=== PATIENT | female | born 1955 | race Caucasian/White ===

== ENCOUNTER 2018-02-13 11:27 | Emergency (ER) | payer OTHER ==
[2018-02-13] MEDS ORDERED: Sodium Chloride 0.9% 1,000 ML IV ONE ×3 (12:14→14:59)
--- NOTE | 2018-02-13 12:24 | EDM.PDOC ---
ED HPI GENERAL MEDICAL PROBLEM - General Chief Complaint: Skin Complaint Stated Complaint: ABSCESS ON BUTTOCK Time Seen by Provider: 02/13/18 11:52 Source of Information: Reports: Patient History Limitations: Reports: No Limitations - History of Present Illness INITIAL COMMENTS - FREE TEXT/NARRATIVE: Patient is a 62-year-old female who presents to the ED complaining of a abscess to the left buttox cheek. This started approximately 2 days ago and has progressively gotten worse. Since onset she's had episodes of nausea and vomiting with profuse sweating and poor appetite. She's attempted to push the fluids but this is difficult. In addition she has a history of chronic cough secondary to smoking. She smokes a half pack per day. This is chronic with no significant changes. She is short of breath chronically. She is a type II diabetic with a history of hypertension, hypothyroidism, and hypercholesterolemia. She is currently on Synthroid, pravastatin, Zyrtec, metformin, HCTZ, and ezetimibe. She has no history of MRSA. - Related Data Allergies Allergy/AdvReac Type Severity Reaction Status Date / Time egg Allergy Nausea and Verified 02/13/18 11:52 Vomiting fish derived Allergy Nausea and Verified 02/13/18 11:52 Vomiting Penicillins Allergy Other Verified 02/13/18 11:52 Home Meds: Home Meds Cetirizine [ZyrTEC] 10 mg PO DAILY 02/13/18 [History] Ezetimibe 10 mg PO DAILY 02/13/18 [History] Hydrochlorothiazide 25 mg PO DAILY 02/13/18 [History] Levothyroxine [Synthroid] 88 mcg PO DAILY 02/13/18 [History] Pravastatin [Pravachol] 40 mg PO DAILY 02/13/18 [History] metFORMIN [Glucophage XR] 500 mg PO BID 02/13/18 [History] ED ROS GENERAL - Review of Systems Review Of Systems: See Below Constitutional: Reports: Fever, Chills, Malaise, Weakness, Decreased Appetite HEENT: Reports: No Symptoms Respiratory: Reports: Shortness of Breath (Chronic), Cough (Chronic). Denies: Pleuritic Chest Pain Cardiovascular: Denies: Chest Pain, Dyspnea on Exertion, Lightheadedness, Palpitations, Syncope GI/Abdominal: Reports: Decreased Appetite, Nausea, Vomiting. Denies: Abdominal Pain, Constipation, Diarrhea : Reports: No Symptoms Musculoskeletal: Reports: No Symptoms Skin: Reports: Other (Abscess to the left Botox cheek) Neurological: Reports: No Symptoms ED EXAM, SKIN/RASH Exam: See Below Exam Limited By: No Limitations General Appearance: Alert, WD/WN, Moderate Distress Eye Exam: Bilateral Eye: PERRL Ears: Hearing Grossly Normal Nose: Normal Inspection Throat/Mouth: Normal Voice, No Airway Compromise Head: Atraumatic, Normocephalic Neck: Normal Inspection, Supple Respiratory/Chest: No Respiratory Distress, No Accessory Muscle Use, Wheezing ( Intermittent wheezing throughout cleared with coughing.). No: Accessory Muscle Use Cardiovascular: Normal Peripheral Pulses, Regular Rate, Rhythm, No Murmur Peripheral Pulses: 4+: Radial (R) GI/Abdominal: Normal Bowel Sounds, Soft, Non-Tender, No Organomegaly, No Distention Rectal (Female) Exam: Other (Large area of redness to the left buttocks cheek with increased swelling and tenderness noted. This extends along the rectum.) Back Exam: Normal Inspection Neurological: Alert, Oriented, CN II-XII Intact, Normal Cognition, No Motor/ Sensory Deficits Psychiatric: Normal Affect, Normal Mood Skin: Warm, Intact, Diaphoretic, Increased Warmth Course - Vital Signs Last Recorded V/S: Last Vital Signs Temp 98.2 F 02/13/18 15:04 Pulse 12 L 02/13/18 11:47 Resp 20 02/13/18 11:47 BP 124/77 02/13/18 11:47 Pulse Ox 91 L 02/13/18 11:47 - Orders/Labs/Meds Orders: Active Orders 24 hr Category Date Time Status Communication Order [RC] ASDIRECTED Care 02/13/18 14:07 Active Peripheral IV Care [RC] . DIRECTED Care 02/13/18 12:14 Active Peripheral IV Care [RC] . DIRECTED Care 02/13/18 14:03 Active CXR [Chest 1V Frontal] [CR] Stat Exams 02/13/18 11:52 Taken Pelvis w Cont [CT] Stat Exams 02/13/18 13:42 Taken CULTURE BLOOD [BC] Stat Lab 02/13/18 12:40 Received CULTURE BLOOD [BC] Stat Lab 02/13/18 13:00 Received Blood Culture x2 Reflex Set [OM.PC] Stat Oth 02/13/18 11:52 Ordered Peripheral IV Insertion Adult [OM.PC] Routine Oth 02/13/18 12:14 Ordered Peripheral IV Insertion Adult [OM.PC] Routine Oth 02/13/18 14:03 Ordered Labs: Laboratory Tests 02/13/18 02/13/18 02/13/18 Range/Units 12:20 12:20 12:20 WBC 17.28 H (3.98-10.04) K/mm3 RBC 5.64 H (3.98-5.22) M/mm3 Hgb 15.7 (11.2-15.7) gm/L Hct 46.8 H (34.1-44.9) % MCV 83.0 (79.4-94.8) fl MCH 27.8 (25.6-32.2) pg MCHC 33.5 (32.2-35.5) g/dl RDW Std Deviation 46.0 (36.4-46.3) fL Plt Count 346 (182-369) K/mm3 MPV 10.0 (9.4-12.3) fl Neutrophils % (Manual) 83 H (40-60) % Band Neutrophils % 3 (0-10) % Lymphocytes % (Manual) 13 L (20-40) % Atypical Lymphs % 0 % Monocytes % (Manual) 1 L (2-10) % Eosinophils % (Manual) 0 L (0.7-5.8) % Basophils % (Manual) 0 L (0.1-1.2) Platelet Estimate Adequate RBC Morph Comment Normal Sodium 132 L (136-145) mEq/L Potassium 3.0 L (3.5-5.1) mEq/L Chloride 93 L (98-107) mEq/L Carbon Dioxide 27 (21-32) mEq/L Anion Gap 15.0 (5-15) BUN 21 H (7-18) mg/dL Creatinine 1.1 H (0.55-1.02) mg/dL Est Cr Clr Drug Dosing 40.01 mL/min Estimated GFR (MDRD) 50 (>60) mL/min BUN/Creatinine Ratio 19.1 H (14-18) Glucose 222 H (80-115) mg/dL Hemoglobin A1c 6.70 H (4.50-6.20) % Lactic Acid (0.4-2.0) mmol/L Calcium 8.9 (8.5-10.1) mg/dL Magnesium (1.8-2.4) mg/dl Total Bilirubin 1.0 (0.2-1.0) mg/dL AST 13 L (15-37) U/L ALT 13 L (14-59) U/L Alkaline Phosphatase 73 (46-116) U/L C-Reactive Protein 45.0 H* (<1.0) mg/dL Total Protein 7.1 (6.4-8.2) g/dl Albumin 2.3 L (3.4-5.0) g/dl Globulin 4.8 gm/dL Albumin/Globulin Ratio 0.5 L (1-2) 02/13/18 02/13/18 Range/Units 12:20 12:40 WBC (3.98-10.04) K/mm3 RBC (3.98-5.22) M/mm3 Hgb (11.2-15.7) gm/L Hct (34.1-44.9) % MCV (79.4-94.8) fl MCH (25.6-32.2) pg MCHC (32.2-35.5) g/dl RDW Std Deviation (36.4-46.3) fL Plt Count (182-369) K/mm3 MPV (9.4-12.3) fl Neutrophils % (Manual) (40-60) % Band Neutrophils % (0-10) % Lymphocytes % (Manual) (20-40) % Atypical Lymphs % % Monocytes % (Manual) (2-10) % Eosinophils % (Manual) (0.7-5.8) % Basophils % (Manual) (0.1-1.2) Platelet Estimate RBC Morph Comment Sodium (136-145) mEq/L Potassium (3.5-5.1) mEq/L Chloride (98-107) mEq/L Carbon Dioxide (21-32) mEq/L Anion Gap (5-15) BUN (7-18) mg/dL Creatinine (0.55-1.02) mg/dL Est Cr Clr Drug Dosing mL/min Estimated GFR (MDRD) (>60) mL/min BUN/Creatinine Ratio (14-18) Glucose (80-115) mg/dL Hemoglobin A1c (4.50-6.20) % Lactic Acid 2.4 H (0.4-2.0) mmol/L Calcium (8.5-10.1) mg/dL Magnesium 1.3 L (1.8-2.4) mg/dl Total Bilirubin (0.2-1.0) mg/dL AST (15-37) U/L ALT (14-59) U/L Alkaline Phosphatase (46-116) U/L C-Reactive Protein (<1.0) mg/dL Total Protein (6.4-8.2) g/dl Albumin (3.4-5.0) g/dl Globulin gm/dL Albumin/Globulin Ratio (1-2) Meds: Medications Discontinued Medications Generic Name Dose Route Start Last Admin Trade Name Freq PRN Reason Stop Dose Admin Sodium Chloride 1,000 mls @ 999 mls/hr 02/13/18 12:14 02/13/18 12:38 Normal Saline IV 02/13/18 13:14 999 mls/hr ONETIME ONE Administration Sodium Chloride 1,000 mls @ 999 mls/hr 02/13/18 12:15 02/13/18 15:23 Normal Saline IV 02/13/18 13:15 999 mls/hr ONETIME ONE Administration Cefoxitin Sodium 1 gm/ Premix 50 mls @ 100 mls/hr 02/13/18 13:44 02/13/18 15: 27 IV 02/13/18 14:13 100 mls/hr ONETIME ONE Administration Metronidazole 500 mg/ Premix 100 mls @ 100 mls/hr 02/13/18 13:44 02/13/18 15: 36 IV 02/13/18 14:43 100 mls/hr ONETIME ONE Administration Magnesium Sulfate 2 gm/ Premix 50 mls @ 25 mls/hr 02/13/18 14:06 02/13/18 15: 35 IV 02/13/18 16:05 25 mls/hr ONETIME ONE Administration Potassium Chloride 10 meq/ 100 mls @ 100 mls/hr 02/13/18 14:15 02/13/18 15:35 Premix IV 100 mls/hr ASDIRECTED BO Administration Sodium Chloride 1,000 mls @ 999 mls/hr 02/13/18 14:59 Normal Saline IV 02/13/18 15:59 ONETIME ONE Iopamidol 100 ml 02/13/18 14:12 02/13/18 14:36 Isovue-370 (76%) IVPUSH 02/13/18 14:13 100 ml ONETIME ONE Administration Magnesium Oxide 800 mg 02/13/18 14:03 02/13/18 15:43 Magnesium Oxide PO 02/13/18 14:04 800 mg ONETIME ONE Administration Ondansetron HCl 4 mg 02/13/18 14:07 02/13/18 15:07 Zofran IVPUSH 02/13/18 14:08 4 mg ONETIME ONE Administration Potassium Chloride 40 meq 02/13/18 14:03 02/13/18 15:07 Klor-Con M20 PO 02/13/18 14:04 40 meq ONETIME ONE Administration Sodium Chloride 10 ml 02/13/18 12:14 02/13/18 15:28 Saline Flush FLUSH 10 ml ASDIRECTED PRN Administration Keep Vein Open Sodium Chloride 10 ml 02/13/18 14:03 Saline Flush FLUSH ASDIRECTED PRN Keep Vein Open Sodium Chloride 10 ml 02/13/18 14:12 02/13/18 14:36 Saline Flush FLUSH 02/13/18 14:13 10 ml ONETIME ONE Administration - Re-Assessments/Exams Free Text/Narrative Re-Assessment/Exam: IV established with normal saline 2000 mL IV bolus. Per sepsis criteria patient required 3120 mils of IV fluids. RR 22. Initial labs and studies will include CBC, chem 14, CRP, blood cultures 2, hemoglobin A1c, lactic acid, UA, chest x-ray, and also CT of the abdomen and pelvis with IV contrast. CXR: Reviewed with Dr. Bal. No acute findings noted. Labs reviewed: White blood cell count 17.68, hemoglobin 15.7, neutrophil percent is 83, bands 3. Sodium 132, potassium 3.0, creatinine 1.1, glucose 222, and A1C 6.7, lactic acid 2.4, magnesium 1.3, and CRP 45. I ordered magnesium 800 mg by mouth and also potassium chloride 40 mEq by mouth. Ordered magnesium 2 g IV and 1x 10 meq potassium rider. Antibiotics ordered include cefoxitin 1 g IV and also Flagyl 500 mg IV. On admission patient had no temperature. Asked for nursing staff to obtain oral temp. She is diaphoretic. Second IV will be established. Recheck by nursing staff 98.9. She is not diaphoretic any more. CT abdomen/pelvis impression:Extensive extraluminal air in the left lower retroperitoneum, pelvis, ischiorectal fossa and gluteal subcutaneous tissues. There is some fluid attenuation in the posterior gluteal subcutaneous tissues which could represent abscess versus phlegmonous tissue. It is poorly defined. 1500 I did speak with [facility]. They will call back once completed other calls. I have asked to have Dr. Mclean be on the phone to discuss patient. [id number] Mclean Colorectal Surgeon. He will see patient in the [facility] prior to surgery. Patient will be transported via [employer]. All transfer paperwork completed. Films pushed to [facility]. Departure - Departure Time of Disposition: 15:17 Disposition: DC/Tfer to [facility] 02 Condition: Fair Clinical Impression: Perirectal abscess Sepsis Qualifiers: Sepsis type: sepsis due to unspecified organism Qualified Code(s): A41.9 - Sepsis, unspecified organism - Discharge Information Referrals: Sally Mckinnon COMPOUNDING TECHNICIAN [Primary Care Provider] - Forms: ED Department Discharge - My Orders Last 24 Hours: My Active Orders 02/13/18 11:52 CXR [Chest 1V Frontal] [CR] Stat Blood Culture x2 Reflex Set [OM.PC] Stat 02/13/18 12:14 Peripheral IV Care [RC] . DIRECTED Peripheral IV Insertion Adult [OM.PC] Routine 02/13/18 12:40 CULTURE BLOOD [BC] Stat 02/13/18 13:00 CULTURE BLOOD [BC] Stat 02/13/18 13:42 Pelvis w Cont [CT] Stat 02/13/18 14:03 Peripheral IV Care [RC] . DIRECTED Peripheral IV Insertion Adult [OM.PC] Routine 02/13/18 14:07 Communication Order [RC] ASDIRECTED - Assessment/Plan Last 24 Hours: My Active Orders 02/13/18 11:52 CXR [Chest 1V Frontal] [CR] Stat Blood Culture x2 Reflex Set [OM.PC] Stat 02/13/18 12:14 Peripheral IV Care [RC] . DIRECTED Peripheral IV Insertion Adult [OM.PC] Routine 02/13/18 12:40 CULTURE BLOOD [BC] Stat 02/13/18 13:00 CULTURE BLOOD [BC] Stat 02/13/18 13:42 Pelvis w Cont [CT] Stat 02/13/18 14:03 Peripheral IV Care [RC] . DIRECTED Peripheral IV Insertion Adult [OM.PC] Routine 02/13/18 14:07 Communication Order [RC] ASDIRECTED
[2018-02-13] MEDS: Sodium Chloride 0.9% 10 ML Syringe FLUSH PRN ×2 (12:38→15:28)
[2018-02-13] MEDS ORDERED: cefOXitin 1 GM in Premix Bag 1 BAG IV ONE (13:44)
[2018-02-13] MEDS ORDERED: metroNIDAZOLE/Normal Saline 500 MG in Premix Bag 1 BAG IV ONE (13:44)
[2018-02-13] MEDS ORDERED: Magnesium Oxide 400 MG Tab PO ONE (14:03)
[2018-02-13] MEDS ORDERED: Sodium Chloride 0.9% 10 ML Syringe FLUSH PRN (14:03)
[2018-02-13] MEDS ORDERED: Potassium Chloride 20 MEQ Tab.ER PO ONE (14:03)
[2018-02-13] MEDS ORDERED: Magnesium Sulfate/Water 2 GM in Premix Bag 1 BAG IV ONE (14:06)
[2018-02-13] MEDS ORDERED: Ondansetron 4 MG/2 ML SDV IVPUSH ONE (14:07)
[2018-02-13] MEDS ORDERED: Iopamidol 755 Mg/ML 100 ML Bottle IVPUSH ONE (14:12)
[2018-02-13] MEDS ORDERED: Sodium Chloride 0.9% 10 ML Syringe FLUSH ONE (14:12)
[2018-02-13] MEDS ORDERED: Potassium Chloride 10 MEQ in Premix Bag 1 BAG IV SCH (14:15)
--- NOTE | 2018-02-13 15:30 | PCM.SN ---
- Free Text/Narrative Note: 02/13/18 [id number] IV started 20 g left wrist times one attempt. Secured. Valarie well
--- NOTE | 2018-02-15 07:29 | CR ---
Chest: Portable view of the chest was obtained. Comparison: No prior chest x-ray is available. Heart size is slightly enlarged but accentuated from portable technique. Lungs are clear and no acute parenchymal change. Bony structures are grossly intact. Impression: 1. Nothing acute is seen on portable chest x-ray. Diagnostic code #1
--- NOTE | 2018-02-15 10:39 | CT ---
CT pelvis Technique: Multiple axial sections were obtained from above the iliac crest inferiorly through the pubic symphysis into the upper thigh. Intravenous contrast was utilized. Comparison: Prior MRI pelvis of 09/05/13. Findings: Air is identified within the soft tissues of the left buttock area and lesser air within the right buttock. Air extends superiorly along the left perirectal soft tissues and left ischiorectal fossa to extend along the left side of the bladder. Diffuse soft tissue thickening is seen around the perirectal soft tissues. Fluid is identified posterior to the rectum which extends across the midline. This measures about 6.3 cm in transverse dimension, 4.5 cm in AP dimension and about 3.5 cm in craniocaudal dimension. This is most likely due to an abscess. Increased density is seen within the fat of the left buttocks compatible with cellulitis. Symmetric contrast enhancement is seen of the lower kidneys. Bladder appears within normal limits. No intrapelvic fluid is seen. No acute bony abnormality is seen. Impression: 1. Extensive air as noted above within the pelvis and within the left buttock. 2. Inflammatory change within the fat of the left buttock as well as inflammatory thickening of the perirectal soft tissues. 3. Fluid within the lower pelvis posterior to the rectum suspicious for abscess with measurements as noted above. Diagnostic code #5 I agree with preliminary report from [facility], finalized at 02/13/18, 4:02 PM Central Time [facility]
== END 2018-02-13 16:10 ==
LOC: JD.ED 11:27
DX: A41.9 Sepsis, unspecified organism (principal); K61.1 Rectal abscess; Z79.899 Other long term (current) drug therapy; Z91.012 Allergy to eggs; Z88.0 Allergy status to penicillin; Z91.013 Allergy to seafood
CPT/HCPCS: 36415; 71045; 72193; 80053; 83036; 83605; 83735; 85007; 85027; 86140; 87040; 96361; 96365; 96368; 96375; 99284; A9270; J0694; J2405; J3480; J7040; J7050; Q9967; 99285; J3475

== ENCOUNTER 2021-12-31 09:37 | Inpatient (IN) | payer OTHER ==
[2021-12-31] MEDS ORDERED: Sodium Chloride 0.9% 10 ML Syringe FLUSH PRN (09:48)
[2021-12-31] MEDS ORDERED: Furosemide 40 MG/4 ML VIAL IVPUSH ONE (09:49)
[2021-12-31 10:52] LABS: ESTIMATED GFR > 60 mL/min (>60)
[2021-12-31] MEDS ORDERED: Albuterol/Ipratropium 3.0-0.5 MG/3 ML Neb Soln NEB ONE (11:29)
[2021-12-31] MEDS ORDERED: Docusate Sodium 100 MG Cap PO PRN (13:09)
[2021-12-31] MEDS ORDERED: Temazepam 7.5 MG Cap PO PRN (13:09)
[2021-12-31 14:06] LABS: HEMOGLOBIN A1C 7.5 %
[2021-12-31] MEDS: Acetaminophen 325 MG Tab PO PRN (15:57)
[2021-12-31] MEDS: Heparin Sodium 5,000 Units/ML Vial SUBCUT SCH ×2 (15:58→21:18)
[2021-12-31] MEDS: oxyCODONE 5 MG Tab PO PRN (18:42)
[2021-12-31] MEDS ORDERED: Insulin Regular, Human 100 Units/ML 3 ML Vial SUBCUT SCH (19:00)
[2021-12-31] MEDS: Insulin Regular, Human 100 Units/ML 3 ML Vial SUBCUT SCH (19:49)
[2021-12-31] MEDS: metFORMIN 500 MG Tab PO SCH (21:17)
[2021-12-31] MEDS: Furosemide 20 MG/2 ML VIAL IVPUSH SCH (21:18)
[2022-01-01] MEDS: Levothyroxine 88 MCG Tab PO SCH (05:48)
[2022-01-01] MEDS: Heparin Sodium 5,000 Units/ML Vial SUBCUT SCH ×3 (05:48→20:56)
[2022-01-01 06:15] LABS: ESTIMATED GFR > 60 mL/min (>60)
[2022-01-01] MEDS: Acetaminophen 325 MG Tab PO PRN ×2 (07:28→14:39)
[2022-01-01] MEDS: Furosemide 20 MG/2 ML VIAL IVPUSH SCH ×3 (07:33→14:23)
[2022-01-01] MEDS ORDERED: Hydrochlorothiazide 25 MG Tab PO SCH (09:00)
[2022-01-01] MEDS: Pravastatin 20 MG Tab PO SCH (09:13)
[2022-01-01] MEDS: oxyCODONE 5 MG Tab PO PRN (09:13)
[2022-01-01] MEDS: metFORMIN 500 MG Tab PO SCH (09:15)
[2022-01-01] MEDS: Insulin Regular, Human 100 Units/ML 3 ML Vial SUBCUT SCH ×3 (09:16→19:30)
[2022-01-01] MEDS ORDERED: Magnesium Sulfate/Water 2 GM in Premix Bag 1 BAG IV ONE (12:00)
[2022-01-01] MEDS: Potassium Chloride 20 MEQ Tab.ER PO SCH ×2 (14:22→20:51)
[2022-01-01] MEDS ORDERED: Furosemide 20 MG/2 ML VIAL IVPUSH ONE (15:30)
[2022-01-02] MEDS: oxyCODONE 5 MG Tab PO PRN ×2 (02:22→10:11)
[2022-01-02] MEDS: Acetaminophen 325 MG Tab PO PRN (02:23)
[2022-01-02] MEDS: Furosemide 20 MG/2 ML VIAL IVPUSH SCH ×2 (05:57→14:36)
[2022-01-02] MEDS: Heparin Sodium 5,000 Units/ML Vial SUBCUT SCH ×4 (05:57→22:49)
[2022-01-02] MEDS: Levothyroxine 88 MCG Tab PO SCH (05:57)
[2022-01-02 07:10] LABS: ESTIMATED GFR > 60 mL/min (>60)
[2022-01-02] MEDS ORDERED: Magnesium Sulfate/Water 4 GM in Premix Bag 1 BAG IV ONE (08:15)
[2022-01-02] MEDS: Insulin Regular, Human 100 Units/ML 3 ML Vial SUBCUT SCH ×3 (09:30→18:13)
[2022-01-02] MEDS: Potassium Chloride 20 MEQ Tab.ER PO SCH ×2 (09:43→20:00)
[2022-01-02] MEDS: Pravastatin 20 MG Tab PO SCH (09:44)
[2022-01-02] MEDS: Nicotine 14 MG/24 Hr Patch TRDERM SCH (09:44)
[2022-01-02] MEDS: Albuterol/Ipratropium 3.0-0.5 MG/3 ML Neb Soln NEB PRN (21:02)
[2022-01-03] MEDS: Albuterol/Ipratropium 3.0-0.5 MG/3 ML Neb Soln NEB PRN ×5 (02:43→20:15)
[2022-01-03] MEDS: Acetaminophen 325 MG Tab PO PRN ×2 (04:58→22:26)
[2022-01-03] MEDS: Heparin Sodium 5,000 Units/ML Vial SUBCUT SCH (05:00)
[2022-01-03] MEDS: Furosemide 20 MG/2 ML VIAL IVPUSH SCH ×2 (05:00→14:21)
[2022-01-03] MEDS: Levothyroxine 88 MCG Tab PO SCH (05:00)
[2022-01-03 06:45] LABS: ESTIMATED GFR > 60 mL/min (>60)
[2022-01-03] MEDS ORDERED: Furosemide 20 MG/2 ML VIAL IVPUSH ONE (07:15)
[2022-01-03] MEDS: Pravastatin 20 MG Tab PO SCH (08:54)
[2022-01-03] MEDS: Potassium Chloride 20 MEQ Tab.ER PO SCH ×3 (08:55→20:25)
[2022-01-03] MEDS: Nicotine 14 MG/24 Hr Patch TRDERM SCH (08:57)
[2022-01-03] MEDS: Insulin Regular, Human 100 Units/ML 3 ML Vial SUBCUT SCH ×3 (08:58→18:42)
[2022-01-03] MEDS ORDERED: Potassium Chloride 20 MEQ Tab.ER PO ONE (11:59)
[2022-01-03] MEDS ORDERED: Magnesium Sulfate/Water 2 GM in Premix Bag 1 BAG IV ONE (12:00)
[2022-01-03] MEDS ORDERED: Sodium Chloride 0.9% 250 ML ONE (12:37)
[2022-01-03] MEDS: Diltiazem IR 30 MG Tab PO SCH ×2 (14:21→20:24)
[2022-01-03] MEDS: Apixaban 5 MG Tab PO SCH (20:25)
[2022-01-03] MEDS: Magnesium Oxide 400 MG Tab PO SCH (20:26)
[2022-01-04] MEDS: Diltiazem IR 30 MG Tab PO SCH ×4 (03:55→20:25)
[2022-01-04 06:42] LABS: ESTIMATED GFR > 60 mL/min (>60)
[2022-01-04] MEDS: Levothyroxine 88 MCG Tab PO SCH (07:25)
[2022-01-04] MEDS: Furosemide 20 MG/2 ML VIAL IVPUSH SCH ×2 (07:26→13:56)
[2022-01-04] MEDS: Magnesium Oxide 400 MG Tab PO SCH ×2 (08:05→20:26)
[2022-01-04] MEDS: Pravastatin 20 MG Tab PO SCH (08:05)
[2022-01-04] MEDS: Apixaban 5 MG Tab PO SCH ×2 (08:05→20:26)
[2022-01-04] MEDS: oxyCODONE 5 MG Tab PO PRN (08:06)
[2022-01-04] MEDS: Potassium Chloride 20 MEQ Tab.ER PO SCH ×3 (08:06→20:25)
[2022-01-04] MEDS: Insulin Regular, Human 100 Units/ML 3 ML Vial SUBCUT SCH ×3 (08:09→19:49)
[2022-01-04] MEDS: Nicotine 14 MG/24 Hr Patch TRDERM SCH (08:10)
[2022-01-04] MEDS: Albuterol/Ipratropium 3.0-0.5 MG/3 ML Neb Soln NEB PRN ×3 (08:45→20:32)
[2022-01-05] MEDS: Acetaminophen 325 MG Tab PO PRN (00:33)
[2022-01-05] MEDS: Diltiazem IR 30 MG Tab PO SCH ×4 (01:14→20:04)
[2022-01-05] MEDS: oxyCODONE 5 MG Tab PO PRN (05:55)
[2022-01-05] MEDS: Furosemide 20 MG/2 ML VIAL IVPUSH SCH (05:55)
[2022-01-05] MEDS: Levothyroxine 88 MCG Tab PO SCH (05:55)
[2022-01-05 08:32] LABS: ESTIMATED GFR > 60 mL/min (>60)
[2022-01-05] MEDS: Magnesium Oxide 400 MG Tab PO SCH ×2 (09:33→20:04)
[2022-01-05] MEDS: Apixaban 5 MG Tab PO SCH ×2 (09:33→20:04)
[2022-01-05] MEDS: Potassium Chloride 20 MEQ Tab.ER PO SCH ×3 (09:34→20:04)
[2022-01-05] MEDS: Insulin Regular, Human 100 Units/ML 3 ML Vial SUBCUT SCH ×3 (09:37→19:32)
[2022-01-05] MEDS: Pravastatin 20 MG Tab PO SCH (09:37)
[2022-01-05] MEDS: Nicotine 14 MG/24 Hr Patch TRDERM SCH (09:38)
[2022-01-05] MEDS: Albuterol/Ipratropium 3.0-0.5 MG/3 ML Neb Soln NEB PRN ×2 (09:44→21:44)
[2022-01-05] MEDS: Furosemide 40 MG/4 ML VIAL IVPUSH SCH (15:34)
[2022-01-05] MEDS ORDERED: Furosemide 40 MG/4 ML VIAL IVPUSH SCH (21:00)
[2022-01-06] MEDS: Diltiazem IR 30 MG Tab PO SCH ×4 (01:18→20:22)
[2022-01-06] MEDS: Acetaminophen 325 MG Tab PO PRN (01:19)
[2022-01-06] MEDS: Furosemide 40 MG/4 ML VIAL IVPUSH SCH ×2 (05:45→13:54)
[2022-01-06] MEDS: Levothyroxine 88 MCG Tab PO SCH (05:45)
[2022-01-06 06:31] LABS: ESTIMATED GFR > 60 mL/min (>60)
[2022-01-06] MEDS ORDERED: Levalbuterol HCl 1.25 MG/3 ML Neb ONE (08:48)
[2022-01-06] MEDS: Levalbuterol HCl 1.25 MG/3 ML Neb NEB PRN ×2 (08:57→20:03)
[2022-01-06] MEDS ORDERED: Magnesium Oxide 400 MG Tab PO ONE (09:00)
[2022-01-06] MEDS: Magnesium Oxide 400 MG Tab PO SCH ×2 (09:07→20:22)
[2022-01-06] MEDS: Pravastatin 20 MG Tab PO SCH (09:08)
[2022-01-06] MEDS: Potassium Chloride 20 MEQ Tab.ER PO SCH ×3 (09:08→20:21)
[2022-01-06] MEDS: Metoprolol Tartrate 25 MG Tab PO SCH ×2 (09:08→20:22)
[2022-01-06] MEDS: Nicotine 14 MG/24 Hr Patch TRDERM SCH (09:08)
[2022-01-06] MEDS: Apixaban 5 MG Tab PO SCH ×2 (09:08→20:21)
[2022-01-06] MEDS: Insulin Regular, Human 100 Units/ML 3 ML Vial SUBCUT SCH ×3 (09:12→18:57)
[2022-01-07] MEDS: Diltiazem IR 30 MG Tab PO SCH ×4 (01:32→21:15)
[2022-01-07] MEDS: Levothyroxine 88 MCG Tab PO SCH (05:44)
[2022-01-07] MEDS: Furosemide 40 MG/4 ML VIAL IVPUSH SCH ×2 (05:44→14:08)
[2022-01-07] MEDS: Acetaminophen 325 MG Tab PO PRN ×2 (05:44→21:15)
[2022-01-07 07:06] LABS: ESTIMATED GFR > 60 mL/min (>60)
[2022-01-07] MEDS: Insulin Regular, Human 100 Units/ML 3 ML Vial SUBCUT SCH ×3 (08:15→18:15)
[2022-01-07] MEDS: Metoprolol Tartrate 25 MG Tab PO SCH ×2 (09:18→21:14)
[2022-01-07] MEDS: Magnesium Oxide 400 MG Tab PO SCH ×2 (09:18→21:15)
[2022-01-07] MEDS: Pravastatin 20 MG Tab PO SCH (09:18)
[2022-01-07] MEDS: Apixaban 5 MG Tab PO SCH ×2 (09:22→21:14)
[2022-01-07] MEDS: Potassium Chloride 20 MEQ Tab.ER PO SCH ×3 (09:23→21:14)
[2022-01-07] MEDS: Nicotine 14 MG/24 Hr Patch TRDERM SCH (09:24)
[2022-01-07] MEDS ORDERED: Diltiazem 240 MG Cap.ER PO SCH (21:00)
[2022-01-08] MEDS: Diltiazem IR 30 MG Tab PO SCH (02:02)
[2022-01-08] MEDS: Furosemide 40 MG/4 ML VIAL IVPUSH SCH ×2 (06:28→14:56)
[2022-01-08] MEDS: Levothyroxine 88 MCG Tab PO SCH (06:28)
[2022-01-08 07:00] LABS: ESTIMATED GFR > 60 mL/min (>60)
[2022-01-08] MEDS: Apixaban 5 MG Tab PO SCH ×2 (08:48→20:25)
[2022-01-08] MEDS: Magnesium Oxide 400 MG Tab PO SCH ×2 (08:48→20:26)
[2022-01-08] MEDS: Potassium Chloride 20 MEQ Tab.ER PO SCH ×3 (08:48→20:25)
[2022-01-08] MEDS: Metoprolol Tartrate 25 MG Tab PO SCH ×2 (08:49→20:26)
[2022-01-08] MEDS: Diltiazem 120 MG Cap.CD PO SCH (08:49)
[2022-01-08] MEDS: Pravastatin 20 MG Tab PO SCH (08:49)
[2022-01-08] MEDS: Nicotine 14 MG/24 Hr Patch TRDERM SCH (08:51)
[2022-01-08] MEDS: Insulin Regular, Human 100 Units/ML 3 ML Vial SUBCUT SCH ×3 (08:53→18:46)
[2022-01-08] MEDS: Levalbuterol HCl 1.25 MG/3 ML Neb NEB PRN (09:31)
[2022-01-08] MEDS: Acetaminophen 325 MG Tab PO PRN (20:26)
[2022-01-09] MEDS: Levothyroxine 88 MCG Tab PO SCH (05:45)
[2022-01-09] MEDS: Bumetanide 1 MG Tab PO SCH ×2 (05:45→13:00)
[2022-01-09 07:01] LABS: ESTIMATED GFR > 60 mL/min (>60)
[2022-01-09] MEDS: Diltiazem 120 MG Cap.CD PO SCH (08:38)
[2022-01-09] MEDS: Potassium Chloride 20 MEQ Tab.ER PO SCH ×3 (08:38→20:27)
[2022-01-09] MEDS: Apixaban 5 MG Tab PO SCH ×2 (08:39→20:27)
[2022-01-09] MEDS: Metoprolol Tartrate 25 MG Tab PO SCH ×2 (08:39→20:27)
[2022-01-09] MEDS: Pravastatin 20 MG Tab PO SCH (08:40)
[2022-01-09] MEDS: Magnesium Oxide 400 MG Tab PO SCH ×2 (08:40→20:27)
[2022-01-09] MEDS: Nicotine 14 MG/24 Hr Patch TRDERM SCH (08:40)
[2022-01-09] MEDS: Insulin Regular, Human 100 Units/ML 3 ML Vial SUBCUT SCH ×3 (08:42→18:40)
[2022-01-09] MEDS: Cetirizine 10 MG Tab PO SCH (12:55)
[2022-01-09] MEDS: Acetaminophen 325 MG Tab PO PRN (20:27)
[2022-01-10] MEDS: Bumetanide 1 MG Tab PO SCH ×2 (06:36→16:48)
[2022-01-10] MEDS: Levothyroxine 88 MCG Tab PO SCH (06:36)
[2022-01-10] MEDS: Acetaminophen 325 MG Tab PO PRN (06:38)
[2022-01-10 06:49] LABS: ESTIMATED GFR > 60 mL/min (>60)
[2022-01-10] MEDS: Apixaban 5 MG Tab PO SCH (08:30)
[2022-01-10] MEDS: Potassium Chloride 20 MEQ Tab.ER PO SCH ×2 (08:30→16:47)
[2022-01-10] MEDS: Magnesium Oxide 400 MG Tab PO SCH (08:30)
[2022-01-10] MEDS: Diltiazem 120 MG Cap.CD PO SCH (08:30)
[2022-01-10] MEDS: Metoprolol Tartrate 25 MG Tab PO SCH (08:31)
[2022-01-10] MEDS: Cetirizine 10 MG Tab PO SCH (08:31)
[2022-01-10] MEDS: Pravastatin 20 MG Tab PO SCH (08:31)
[2022-01-10] MEDS: Nicotine 14 MG/24 Hr Patch TRDERM SCH (08:32)
[2022-01-10] MEDS: Insulin Regular, Human 100 Units/ML 3 ML Vial SUBCUT SCH ×2 (08:34→16:49)
== END 2022-01-10 14:08 | disposition home or self-care (01) | DRG 291 ==
LOC: JD.ED 09:37 → JD.MS 13:09
PROVIDERS: ADMIT Internal Medicine; ATTEND Internal Medicine
DX: I11.0 Hypertensive heart disease with heart failure (principal); J96.01 Acute respiratory failure with hypoxia; I50.43 Acute on chronic combined systolic (congestive) and diastolic (congestive) heart failure; Z68.41 Body mass index [BMI] 40.0-44.9, adult; I50.9 Heart failure, unspecified; E11.9 Type 2 diabetes mellitus without complications; E66.9 Obesity, unspecified; E87.6 Hypokalemia; E83.42 Hypomagnesemia; E78.5 Hyperlipidemia, unspecified; E03.9 Hypothyroidism, unspecified; I48.91 Unspecified atrial fibrillation; F17.210 Nicotine dependence, cigarettes, uncomplicated; Z79.890 Hormone replacement therapy; Z79.01 Long term (current) use of anticoagulants; Z79.899 Other long term (current) drug therapy; E78.00 Pure hypercholesterolemia, unspecified; Z87.01 Personal history of pneumonia (recurrent)
CPT/HCPCS: 36415; 71045; 71045-26; 71046; 71046-26; 80048; 80053; 82947; 83036; 83735; 83880; 84484; 85025; 85379; 86140; 93005; 93306; 94640; 94760; 94761; 96374; 97110-GP; 97116-GP; 97162-GP; 97530-GP; 99223; 99233; 99239; 99285-25; A9270-GY; J1644; J1815-GY; J1940; J3475; J3490; J7050; J7612-GY; J7620-GY; U0002